=== PATIENT | male | born 1930 | race African-American/Black ===

== ENCOUNTER 2017-07-15 15:11 | Emergency (ER) | payer OTHER ==
[~2017-07-15] VITALS: Ht 188 cm; Wt 70.5 kg
[~2017-07-15 15:11] MED LIST: ASPI-1073 PO; OMEP20CA4 PO
[2017-07-15 16:33] LABS: BASOPHILS % 0.5 % (0.0-2.0); EOSINOPHILS % 0.7 % (0.0-5.0); HEMATOCRIT. 34.3 % (42.0-52.0); HEMOGLOBIN. 11.6 g/dL (14.0-18.0); LYMPHOCYTES % 13.9 % (20.0-50.0); MEAN CORPUSCULAR HEMOGLOBIN 31.1 pg (28.0-32.0); MEAN CORPUSCULAR VOLUME 92.4 fL (80.0-94.0); MEAN PLATELET VOLUME 8.9 fl (7.4-10.4); MONOCYTES % 12.4 % (2.0-8.0); NEUTROPHILS % 72.5 % (40.0-76.0); PLATELET 230 x1000/uL (130-400); RED BLOOD CELL COUNT 3.72 mill/uL (4.7-6.1); RED CELL DISTRIBUTION WIDTH 14.1 % (11.6-14.6)
[2017-07-15] MEDS ORDERED: CLINDAMYCIN HCL 150MG CAPSULE PO STA (19:34)
[2017-07-15] MEDS ORDERED: ACETAMINOPHEN 325MG TABLET PO ONE (19:45)
[2017-07-15] MEDS ORDERED: COLCHICINE 0.6MG TABLET PO ONE (21:45)
[2017-07-15] MEDS ORDERED: SODIUM CHLORIDE 0.9% 1,000 ML IV ONE (21:45)
[2017-07-16 01:00] VITALS: BP 118/67
== END 2017-07-16 01:07 | disposition home or self-care (01) ==
LOC: ER 16:19
DX: M79.641 Pain in right hand (principal); M79.89 Other specified soft tissue disorders; Z88.0 Allergy status to penicillin; Z79.82 Long term (current) use of aspirin; M10.9 Gout, unspecified; I10 Essential (primary) hypertension; Z98.890 Other specified postprocedural states
CPT/HCPCS: 36415; 73130; 80048; 84550; 85025; 87040; 93971; 96360; 99285; J7030; J7050

== ENCOUNTER 2018-01-03 13:00 | Inpatient (IN) | payer OTHER ==
[~2018-01-03] VITALS: Ht 188 cm; Wt 66.8 kg
[2018-01-03] MEDS ORDERED: SODIUM CHLORIDE 0.9% 250 ML IV ONE (16:49)
[2018-01-03 16:52] LABS: PARTIAL THROMBOPLASTIN TIME 25.6 sec (23.4-31.0); PROTHROMBIN TIME 10.2 sec (9.1-11.1)
[2018-01-03 16:53] LABS: BASOPHILS % 0.4 % (0.0-2.0); EOSINOPHILS % 0.2 % (0.0-5.0); HEMATOCRIT. 34.6 % (42.0-52.0); HEMOGLOBIN. 11.7 g/dL (14.0-18.0); LYMPHOCYTES % 13.1 % (20.0-50.0); MEAN CORPUSCULAR HEMOGLOBIN 31.7 pg (28.0-32.0); MEAN CORPUSCULAR VOLUME 93.9 fL (80.0-94.0); MEAN PLATELET VOLUME 8.8 fl (7.4-10.4); MONOCYTES % 10.7 % (2.0-8.0); NEUTROPHILS % 75.6 % (40.0-76.0); PLATELET 225 x1000/uL (130-400); RED BLOOD CELL COUNT 3.68 mill/uL (4.7-6.1); RED CELL DISTRIBUTION WIDTH 14.2 % (11.6-14.6)
[2018-01-03 16:54] LABS: CHLORIDE 109 mEq/L (98-107)
[2018-01-03] MEDS ORDERED: MECLIZINE 25MG TABLET PO ONE (17:00)
[2018-01-03] MEDS ORDERED: ONDANSETRON HCL 4MG/2ML INJ IV ONE (17:00)
[2018-01-03 21:22] VITALS: BP 142/76
[2018-01-03] MEDS ORDERED: ACETAMINOPHEN 325MG TABLET PO PRN (23:45)
[2018-01-03] MEDS ORDERED: HYDRALAZINE 20MG/ML VIAL IV PRN (23:45)
[2018-01-03] MEDS ORDERED: MECLIZINE 25MG TABLET PO PRN (23:45)
[2018-01-04] VITALS (8 sets, daily range): BP systolic 101–135; BP diastolic 60–73
[2018-01-04] MEDS: PANTOPRAZOLE 40MG DR TABLET PO SCH (06:35)
[2018-01-04 06:46] LABS: BASOPHILS % 0.7 % (0.0-2.0); EOSINOPHILS % 2.7 % (0.0-5.0); HEMATOCRIT. 33.6 % (42.0-52.0); HEMOGLOBIN. 11.2 g/dL (14.0-18.0); LYMPHOCYTES % 26.8 % (20.0-50.0); MEAN CORPUSCULAR HEMOGLOBIN 31.2 pg (28.0-32.0); MEAN CORPUSCULAR VOLUME 93.8 fL (80.0-94.0); MEAN PLATELET VOLUME 8.9 fl (7.4-10.4); MONOCYTES % 11.6 % (2.0-8.0); NEUTROPHILS % 58.2 % (40.0-76.0); PLATELET 212 x1000/uL (130-400); RED BLOOD CELL COUNT 3.58 mill/uL (4.7-6.1); RED CELL DISTRIBUTION WIDTH 14.1 % (11.6-14.6)
[2018-01-04 07:27] LABS: CHLORIDE 113 mEq/L (98-107)
[2018-01-04 07:52] LABS: HDL CHOLESTEROL 46 mg/dL (40-59); LDL CHOLESTEROL 63 mg/dL (5-100)
[2018-01-04] MEDS ORDERED: LISINOPRIL 20MG TABLET PO SCH (09:00)
[2018-01-04] MEDS: ASPIRIN 81MG TABLET PO SCH (09:38)
[2018-01-04] MEDS: TAMSULOSIN HCL 0.4MG SR CAPSULE PO SCH ×2 (16:08→16:11)
[2018-01-04] MEDS: DEXT 5%/0.45% NACL 1000ML 1,000 ML IV SCH (16:09)
[2018-01-04] MEDS ORDERED: DOCUSATE SODIUM SUGAR FREE 100MG/10ML UDC PO PRN (19:30)
[2018-01-04] MEDS ORDERED: DIPHENHYDRAMINE 50MG/ML VIAL IV PRN (19:30)
[2018-01-04] MEDS ORDERED: NA PHOS,M-B/NA PHOS,DI-BA ENEMA 118ML PR PRN (19:37)
[2018-01-04] MEDS ORDERED: HYDROCODONE/ACETAMINOPHEN 5/325MG TABLET PO PRN (19:40)
[2018-01-05] VITALS (8 sets, daily range): BP systolic 92–151; BP diastolic 56–103
[2018-01-05] MEDS: DEXT 5%/0.45% NACL 1000ML 1,000 ML IV SCH ×2 (00:25→13:40)
[2018-01-05] MEDS: PANTOPRAZOLE 40MG DR TABLET PO SCH (06:29)
[2018-01-05 07:46] LABS: BASOPHILS % 0.6 % (0.0-2.0); EOSINOPHILS % 4.8 % (0.0-5.0); HEMOGLOBIN. 11.2 g/dL (14.0-18.0); LYMPHOCYTES % 23.4 % (20.0-50.0); MEAN CORPUSCULAR HEMOGLOBIN 31.9 pg (28.0-32.0); MEAN CORPUSCULAR VOLUME 93.6 fL (80.0-94.0); MEAN PLATELET VOLUME 9.2 fl (7.4-10.4); MONOCYTES % 10.5 % (2.0-8.0); NEUTROPHILS % 60.7 % (40.0-76.0); PLATELET 214 x1000/uL (130-400); RED BLOOD CELL COUNT 3.52 mill/uL (4.7-6.1)
[2018-01-05 08:34] LABS: CLARITY URINE CLEAR (CLEAR); COLOR URINE YELLOW (YELLOW); KETONES URINE NEGATIVE (NEGATIVE); LEUKOCYTE ESTERASE URINE NEGATIVE (NEGATIVE); NITRITE URINE NEGATIVE (NEGATIVE); OCCULT BLOOD URINE NEGATIVE (NEGATIVE); PROTEIN URINE NEGATIVE (NEGATIVE); UROBILINOGEN URINE 0.2 E.U./dL (0.2-1.0)
[2018-01-05 09:38] LABS: CHLORIDE 109 mEq/L (98-107)
[2018-01-05 09:44] LABS: CREATINE KINASE 331 IU/L (39-308); CREATINE KINASE MB FRACTION 4.4 ng/mL (0.5-3.6); HDL CHOLESTEROL 44 mg/dL (40-59); LDL CHOLESTEROL 59 mg/dL (5-100)
[2018-01-05] MEDS: ASPIRIN 81MG TABLET PO SCH (09:49)
[2018-01-05 11:13] LABS: *AMPHETAMINES SCREEN URINE NEGATIVE (NEGATIVE); *BARBITURATES SCREEN URINE NEGATIVE (NEGATIVE); *BENZODIAZEPINES SCREEN URINE NEGATIVE (NEGATIVE); *COCAINE SCREEN URINE NEGATIVE (NEGATIVE); CANNABINOID URINE SCREEN NEGATIVE (NEGATIVE); METHADONE URINE SCREEN NEGATIVE (NEGATIVE); OPIATES URINE SCREEN NEGATIVE (NEGATIVE); PHENCYCLIDINE URINE SCREEN NEGATIVE (NEGATIVE)
[2018-01-05] MEDS ORDERED: SODIUM CHLORIDE 0.9% 250 ML IV ONE (16:00)
[2018-01-05 18:08] LABS: CHLORIDE 110 mEq/L (98-107)
[2018-01-06] MEDS: DEXT 5%/0.45% NACL 1000ML 1,000 ML IV SCH (02:33)
[2018-01-06 04:28] VITALS: BP 133/73
[2018-01-06] MEDS: PANTOPRAZOLE 40MG DR TABLET PO SCH (06:19)
[2018-01-06 07:09] LABS: HEMATOCRIT 33.4 % (42.0-52.0); HEMOGLOBIN 11.1 g/dL (14.0-18.0); MEAN CORPUSCULAR VOLUME 93.2 fL (80.0-94.0); PLATELET 205 x1000/uL (130-400); RED BLOOD CELL COUNT 3.58 mill/uL (4.7-6.1); RED CELL DISTRIBUTION WIDTH 14.2 % (11.6-14.6)
[2018-01-06 08:42] LABS: CHLORIDE 109 mEq/L (98-107)
[2018-01-06] MEDS ORDERED: SODIUM CHLORIDE 0.9% 250 ML IV ONE (09:45)
[2018-01-06] MEDS: TAMSULOSIN HCL 0.4MG SR CAPSULE PO SCH (09:58)
[2018-01-06] MEDS: ASPIRIN 81MG TABLET PO SCH (09:58)
[2018-01-06 12:00] VITALS: BP 143/78
[2018-01-06 14:09] VITALS: BP 143/78
== END 2018-01-06 14:40 | disposition home or self-care (01) | DRG 73 ==
LOC: ER 15:08 → 6WST 17:05 → EDBEDREQTM 17:11 → EDBEDREQ 17:11 → ENRESERV 17:33
PROVIDERS: ADMIT Internal Medicine; ATTEND Internal Medicine
DX: G90.8 Other disorders of autonomic nervous system (principal); N17.0 Acute kidney failure with tubular necrosis; E46 Unspecified protein-calorie malnutrition; Z68.1 Body mass index [BMI] 19.9 or less, adult; D64.9 Anemia, unspecified; E86.0 Dehydration; R00.1 Bradycardia, unspecified; R26.9 Unspecified abnormalities of gait and mobility; I10 Essential (primary) hypertension; M19.90 Unspecified osteoarthritis, unspecified site; E78.00 Pure hypercholesterolemia, unspecified; M10.9 Gout, unspecified; M48.02 Spinal stenosis, cervical region; M48.061 Spinal stenosis, lumbar region without neurogenic claudication; C61 Malignant neoplasm of prostate; E78.5 Hyperlipidemia, unspecified; H53.8 Other visual disturbances; E87.5 Hyperkalemia; F17.200 Nicotine dependence, unspecified, uncomplicated; G62.9 Polyneuropathy, unspecified; K21.9 Gastro-esophageal reflux disease without esophagitis; K62.3 Rectal prolapse; N40.0 Benign prostatic hyperplasia without lower urinary tract symptoms; Z92.3 Personal history of irradiation; Z86.73 Personal history of transient ischemic attack (TIA), and cerebral infarction without residual deficits; Z91.19 Patient's noncompliance with other medical treatment and regimen; Z79.899 Other long term (current) drug therapy; Z88.0 Allergy status to penicillin; Z79.82 Long term (current) use of aspirin
CPT/HCPCS: 36415; 70544; 70553; 71045; 78582; 80048; 80061; 80305; 82550; 82553; 83735; 83880; 84153; 84439; 84443; 84484; 84550; 85027; 85379; 93005; 93306; 93880; 93970; 96374; 97162; 97166; 97530; 99285; A9558; C1893; J2405; J3490; J7050; J8597; G0103

== ENCOUNTER 2018-07-20 17:26 | Emergency (ER) | payer MEDICARE, OTHER ==
[~2018-07-20] VITALS: Ht 188 cm; Wt 73.0 kg
[2018-07-20] MEDS ORDERED: DOCUSATE SODIUM SUGAR FREE 100MG/10ML UDC NG ONE (22:15)
[2018-07-21] MEDS ORDERED: ONDANSETRON 4MG ODT PO ONE
[2018-07-21] MEDS ORDERED: MECLIZINE 12.5MG TABLET PO ONE
[2018-07-21 00:30] VITALS: BP 160/75
== END 2018-07-21 00:30 | disposition home or self-care (01) ==
LOC: ER 20:52
DX: H61.21 Impacted cerumen, right ear (principal); I10 Essential (primary) hypertension; Z88.0 Allergy status to penicillin
CPT/HCPCS: 69210; 99284; J8597; Q0162